=== PATIENT | male | born 1950 | race Caucasian/White ===

== ENCOUNTER 2016-12-27 14:23 | Emergency (ER) | payer MEDICARE ==
[~2016-12-27] VITALS: Ht 182.9 cm; Wt 100.0 kg
[~2016-12-27 14:23] MED LIST: KLONOPIN 1MG1 MG PO
[2016-12-27 14:26] VITALS: BP 96/81; TEMP 97.5
[2016-12-27] MEDS ORDERED: REMERON30 MG PO ×2 (14:52→15:08)
[2016-12-27] MEDS ORDERED: COREG12.5 MG PO (15:04)
[2016-12-27] MEDS ORDERED: KLONOPIN2 MG PO (15:05)
[2016-12-27] MEDS ORDERED: PLAVIX 75MG TAB75 MG PO (15:06)
[2016-12-27] MEDS ORDERED: XALATAN EYE DROPS OU (15:06)
[2016-12-27] MEDS ORDERED: SYNTHROID 0.0.025 MG PO (15:06)
[2016-12-27] MEDS ORDERED: CRESTOR40 MG PO (15:07)
[2016-12-27] MEDS ORDERED: ROBAXIN 50500 MG/TAB PO (15:07)
[2016-12-27] MEDS ORDERED: ZESTRIL 10MG10 MG PO (15:07)
[2016-12-27] MEDS ORDERED: ASPIRIN 81M81 MG/TA2 PO (15:08)
[2016-12-27] MEDS ORDERED: DESYREL 50MG50 MG PO (15:08)
[2016-12-27] MEDS ORDERED: INDOCIN50 MG PO (15:55)
[2016-12-27] MEDS ORDERED: NORCO 325 MG-51 TAB PO (15:55)
[2016-12-27 15:57] LABS: BASO % 0.4 % (0.0-2.0); EOS # 0.1 (0.0-0.7); EOS % 0.9 % (0-4.0); GRAN # 8.3 (1.4-6.5); GRAN % 76.2 % (42.2-75.2); HEMATOCRIT 43.6 % (42.0-52.0); HEMOGLOBIN 14.7 g/dl (13.5-18.0); LYMPH # 1.7 (1.2-3.4); LYMPH % 15.3 % (20.0-51.0); MEAN CELL VOLUME 91 fl (80.0-100.0); MEAN CORPUSCULAR HEMOGLOBIN 31 pg (27.0-31.0); MEAN CORPUSCULAR HGB CONC 34 g/dl (33.0-37.0); MEAN PLATELET VOLUME 12.9 fl (7.4-10.4); MONO # 0.7 (0.1-0.6); MONO % 6.8 % (1.7-9.3); PLATELET COUNT 128 K/mm3 (130-400); RED BLOOD COUNT 4.77 M/mm3 (4.20-5.60); REDCELL DISTRIBUTION WIDTH-CV 12.6 % (11.5-14.5); WHITE BLOOD COUNT 10.9 K/mm3 (4.8-10.8)
[2016-12-27 16:15] LABS: URIC ACID 9.5 mg/dL (3.5-8.5)
[2016-12-27 16:25] LABS: ADJUSTED CALCIUM 9.6 mg/dL (8.4-10.2); ALBUMIN 4.2 gm/dL (3.5-5.0); BILIRUBIN,TOTAL 1.1 mg/dL (0.0-1.0); CALCIUM 9.8 mg/dL (8.4-10.2); CREATININE, serum 1.54 mg/dL (0.66-1.25); POTASSIUM 4.3 mmol/L (3.4-5.0); TOTAL PROTEIN 7.9 gm/dL (6.4-8.2)
[2016-12-27 16:37] LABS: C-REACTIVE PROTEIN 1.3 mg/dL (0.0-0.9)
[2016-12-27 16:52] VITALS: PULSE 79
== END 2016-12-27 16:53 | disposition home or self-care (01) ==
LOC: COL.ER 14:23
PROVIDERS: Emergency Medicine
DX: M79.672 Pain in left foot (principal); M79.671 Pain in right foot; Z86.39 Personal history of other endocrine, nutritional and metabolic disease
CPT/HCPCS: J1885

== ENCOUNTER 2017-03-02 14:14 | Inpatient (IN) | payer MEDICARE ==
[~2017-03-02] VITALS: Ht 185.4 cm; Wt 97.1 kg
[~2017-03-02 14:14] MED LIST changes: +ASPIRIN 81M81 MG/TA2 PO; +COREG12.5 MG PO; +CRESTOR40 MG PO; +DESYREL 50MG50 MG PO; +INDOCIN50 MG PO; +KLONOPIN2 MG PO; +NORCO 325 MG-51 TAB PO; +PLAVIX 75MG TAB75 MG PO; +REMERON30 MG PO; +ROBAXIN 50500 MG/TAB PO; +SYNTHROID 0.0.025 MG PO; +XALATAN EYE DROPS OU; +ZESTRIL 10MG10 MG PO
[2017-03-02 16:00] LABS: BASO # 0.1 (0.0-0.2); BASO % 0.5 % (0.0-2.0); EOS # 0.1 (0.0-0.7); GRAN # 7.8 (1.4-6.5); GRAN % 69.4 % (42.2-75.2); HEMATOCRIT 38.1 % (42.0-52.0); HEMOGLOBIN 13.1 g/dl (13.5-18.0); LYMPH # 2.4 (1.2-3.4); LYMPH % 21.3 % (20.0-51.0); MEAN CELL VOLUME 91 fl (80.0-100.0); MEAN CORPUSCULAR HEMOGLOBIN 31 pg (27.0-31.0); MEAN CORPUSCULAR HGB CONC 34 g/dl (33.0-37.0); MEAN PLATELET VOLUME 12.9 fl (7.4-10.4); MONO # 0.8 (0.1-0.6); MONO % 7.5 % (1.7-9.3); PLATELET COUNT 109 K/mm3 (130-400); REDCELL DISTRIBUTION WIDTH-CV 12.6 % (11.5-14.5); WHITE BLOOD COUNT 11.2 K/mm3 (4.8-10.8)
[2017-03-02 16:33] LABS: ANION GAP 12 mmol/L (7-16); BLOOD UREA NITROGEN 33 mg/dL (9-20); CALCIUM 9.5 mg/dL (8.4-10.2); CARBON DIOXIDE 25 mmol/L (22-30); CHLORIDE 103 mmol/L (98-107); CREATININE, serum 1.99 mg/dL (0.66-1.25); GLUCOSE 88 mg/dL (74-106); POTASSIUM 4.2 mmol/L (3.4-5.0); SODIUM 139 mmol/L (137-145)
[2017-03-02 16:47] LABS: TROPONIN-I < 0.012 ng/mL (0.000-0.034)
[2017-03-02 21:00] VITALS: BP 96/40; PULSE 108; TEMP 97.5
[2017-03-02 21:15] VITALS: BP 88/50; BP 96/40; BP 96/58; PULSE 108; TEMP 97.5
[2017-03-02 23:22] VITALS: BP 90/52; PULSE 61; TEMP 97.6
[2017-03-03 01:45] VITALS: BP 91/54
[2017-03-03 02:01] LABS: PH 5 (5-8); SQUAMOUS EPITHELIAL 0-2 /hpf; URINE APPEARANCE Hazy; URINE BACTERIA None Seen /hpf; URINE BILIRUBIN Negative (NEGATIVE); URINE BLOOD 1+ (NEGATIVE); URINE COLOR Yellow; URINE GLUCOSE Negative (NEGATIVE); URINE KETONE Negative (NEGATIVE); URINE RBC 0-2 /hpf; URINE UROBILINOGEN Negative (NEGATIVE)
[2017-03-03 02:30] VITALS: BP 88/55
[2017-03-03 04:30] VITALS: BP 90/52; PULSE 60; TEMP 97.4
[2017-03-03 06:15] VITALS: BP 90/48
[2017-03-03 07:50] VITALS: BP 115/60; PULSE 40; TEMP 97.7
[2017-03-03 11:37] VITALS: BP 135/87; PULSE 40; TEMP 97.3
== END 2017-03-03 13:40 | disposition home or self-care (01) | DRG 69 ==
LOC: COL.ER 14:14 → MEDICAL 17:45
PROVIDERS: Emergency Medicine; Nurse Practitioner Family
DX: G45.9 Transient cerebral ischemic attack, unspecified (principal); R47.01 Aphasia; R26.9 Unspecified abnormalities of gait and mobility; D64.9 Anemia, unspecified; Z66 Do not resuscitate; E03.9 Hypothyroidism, unspecified; I10 Essential (primary) hypertension; I25.2 Old myocardial infarction; I25.10 Atherosclerotic heart disease of native coronary artery without angina pectoris; Z95.5 Presence of coronary angioplasty implant and graft; Z87.891 Personal history of nicotine dependence
CPT/HCPCS: 99239; A9585; J1650; J7030; J7040

== ENCOUNTER 2017-03-15 11:23 | Emergency (ER) | payer MEDICARE ==
[~2017-03-15] VITALS: Ht 185.4 cm; Wt 97.7 kg
[2017-03-15 11:24] VITALS: TEMP 97.7
[2017-03-15] MEDS ORDERED: PREDNISONE20 MG PO (12:38)
[2017-03-15] MEDS ORDERED: ULTRAM 50MG TAB50 MG PO (12:38)
[2017-03-15] MEDS ORDERED: PERCOCET 325 MG1 TA2 PO (12:38)
[2017-03-15 12:48] LABS: ANION GAP 8 mmol/L (7-16); BLOOD UREA NITROGEN 11 mg/dL (9-20); CALCIUM 8.7 mg/dL (8.4-10.2); CARBON DIOXIDE 27 mmol/L (22-30); CHLORIDE 106 mmol/L (98-107); CREATININE, serum 1.44 mg/dL (0.66-1.25); GLUCOSE 97 mg/dL (74-106); POTASSIUM 4.1 mmol/L (3.4-5.0); SODIUM 141 mmol/L (137-145)
[2017-03-15 12:56] VITALS: BP 105/70; PULSE 56
[2017-03-15 13:14] LABS: TROPONIN-I < 0.012 ng/mL (0.000-0.034)
== END 2017-03-15 12:55 | disposition home or self-care (01) ==
LOC: COL.ER 11:23
PROVIDERS: Emergency Medicine
DX: M79.672 Pain in left foot (principal); M79.671 Pain in right foot; I10 Essential (primary) hypertension; I25.10 Atherosclerotic heart disease of native coronary artery without angina pectoris; Z95.5 Presence of coronary angioplasty implant and graft; Z79.02 Long term (current) use of antithrombotics/antiplatelets
CPT/HCPCS: J7512

== ENCOUNTER 2017-03-25 08:58 | Emergency (ER) | payer MEDICARE ==
[~2017-03-25] VITALS: Ht 185.4 cm; Wt 95.5 kg
[~2017-03-25 08:58] MED LIST changes: +PERCOCET 325 MG1 TA2 PO; +PREDNISONE20 MG PO; +ULTRAM 50MG TAB50 MG PO
[2017-03-25 09:06] VITALS: BP 123/79; TEMP 98.5
[2017-03-25] MEDS ORDERED: ULTRAM 50MG TAB50 MG PO (09:40)
[2017-03-25] MEDS ORDERED: PREDNISONE20 MG PO (09:40)
[2017-03-25 09:56] VITALS: PULSE 72
== END 2017-03-25 09:56 | disposition home or self-care (01) ==
LOC: COL.ER 08:58
DX: M10.071 Idiopathic gout, right ankle and foot (principal); I10 Essential (primary) hypertension; R00.1 Bradycardia, unspecified

== ENCOUNTER 2017-03-25 16:45 | Emergency (ER) | payer MEDICARE ==
[~2017-03-25] VITALS: Ht 185.4 cm; Wt 95.5 kg
[2017-03-25 16:47] VITALS: BP 106/65; TEMP 97.6
[2017-03-25 18:13] VITALS: PULSE 71
== END 2017-03-25 18:14 | disposition home or self-care (01) ==
LOC: COL.ER 16:45
DX: R53.83 Other fatigue (principal); V43.52XA Car driver injured in collision with other type car in traffic accident, initial encounter; Y92.410 Unspecified street and highway as the place of occurrence of the external cause; I10 Essential (primary) hypertension; I25.10 Atherosclerotic heart disease of native coronary artery without angina pectoris; Z95.5 Presence of coronary angioplasty implant and graft; M10.00 Idiopathic gout, unspecified site

== ENCOUNTER 2017-04-02 11:36 | Emergency (ER) | payer MEDICARE ==
[~2017-04-02] VITALS: Ht 182.9 cm; Wt 95.5 kg
[2017-04-02 11:45] VITALS: BP 136/99; TEMP 98.7
[2017-04-02 12:29] LABS: INR 1.2 (0.8-3.0); PROTHROMBIN TIME 13.3 SECONDS (9.7-12.8)
[2017-04-02 12:31] LABS: PARTIAL THROMBOPLASTIN TIME 26.9 SECONDS (26.0-37.0)
[2017-04-02 12:32] LABS: BASO % 0.1 % (0.0-2.0); EOS # 0.1 (0.0-0.7); EOS % 0.4 % (0-4.0); GRAN # 14.4 (1.4-6.5); GRAN % 77.8 % (42.2-75.2); HEMATOCRIT 43.6 % (42.0-52.0); HEMOGLOBIN 15.1 g/dl (13.5-18.0); LYMPH # 2.6 (1.2-3.4); LYMPH % 14.1 % (20.0-51.0); MEAN CELL VOLUME 90 fl (80.0-100.0); MEAN CORPUSCULAR HEMOGLOBIN 31 pg (27.0-31.0); MEAN CORPUSCULAR HGB CONC 35 g/dl (33.0-37.0); MEAN PLATELET VOLUME 12.8 fl (7.4-10.4); MONO # 1.3 (0.1-0.6); MONO % 7.1 % (1.7-9.3); PLATELET COUNT 189 K/mm3 (130-400); RED BLOOD COUNT 4.87 M/mm3 (4.20-5.60); REDCELL DISTRIBUTION WIDTH-CV 12.6 % (11.5-14.5); WHITE BLOOD COUNT 18.5 K/mm3 (4.8-10.8)
[2017-04-02 12:36] LABS: ADJUSTED CALCIUM 9.6 mg/dL (8.4-10.2); ALBUMIN 4.4 gm/dL (3.5-5.0); BILIRUBIN,TOTAL 1.7 mg/dL (0.0-1.0); CALCIUM 9.9 mg/dL (8.4-10.2); CREATININE, serum 1.38 mg/dL (0.66-1.25); MAGNESIUM 2.1 mg/dL (1.6-2.3); POTASSIUM 4.2 mmol/L (3.4-5.0); TOTAL PROTEIN 7.8 gm/dL (6.4-8.2)
[2017-04-02 12:56] LABS: TROPONIN-I 0.073 ng/mL (0.000-0.034)
[2017-04-02 13:23] VITALS: PULSE 0
== END 2017-04-03 01:49 | disposition expired ==
LOC: COL.ER 11:36
PROVIDERS: Emergency Medicine
DX: I46.9 Cardiac arrest, cause unspecified (principal); I47.2 Ventricular tachycardia; Z66 Do not resuscitate; I25.2 Old myocardial infarction; Z86.73 Personal history of transient ischemic attack (TIA), and cerebral infarction without residual deficits; I10 Essential (primary) hypertension
CPT/HCPCS: J0171; J0282; J0461; J7060